=== PATIENT | female | born 1980 | race African-American/Black ===

== ENCOUNTER 2021-02-25 01:40 | Day surgery (SDC) | payer OTHER, SELFPAY ==
[2021-02-06 13:48] VITALS: BMI 23.2
[2021-02-25 08:19] VITALS: BP 129/87; PULSE 86; RESP 18; TEMP 36.6; O2SAT 100
[2021-02-25] MEDS: LACTATED RINGERS 1,000 ML 150 ML IV CONT (08:26)
--- NOTE | 2021-02-25 08:31 | WPDGICN ---
Assessment and Plan Assessment and plan (1) Epigastric abdominal pain: Code(s): R10.13 - Epigastric pain Status: Acute Assessment and Plan: Patient has ongoing epigastric pain. Had she does have a distant history of peptic ulcer disease 20 years ago. Currently having poor response to PPI therapy. She should continue to avoid nonsteroidal anti-inflammatory agents. PPI is advised be increased to a b.i.d. dose. EGD will be performed and further recommendations subsequently. GI Consult Note Consult date/time: 02/25/21 08:31 HPI: Diane Nichole is a 40 year old female Presents for EGD. Patient reports of 5 month history of epigastric pain. She continues to notice pain in the epigastric area of the abdomen. Somewhat worse after eating spicy foods. Previously has taken nonsteroidal anti-inflammatory agents she is decrease these over the last 1 month. Most recently has been on PPI therapy 40 mg p.o. b.i.d.. Of omeprazole. Her family history is noncontributory. Because of ongoing epigastric pain an EGD is performed today. Review of Systems Review of Systems: All systems reviewed & are unremarkable except as noted in HPI and below PMFSH Past Medical History Medical History (Updated 01/01/21 @ 14:16 by William Cannon MD) Gastric ulcer GERD (gastroesophageal reflux disease) Surgical History Surgical History H/O cystoscopy H/O: hysterectomy Family History Family History Mother Hypertension Diabetes mellitus Sibling Asthma Social History Social History Smoking status: Never smoker Second hand tobacco smoke exposure: No Alcohol intake: never Substance use: never Substance use type: does not use Living arrangements: with family Gender identity (if verbalized by the patient): Female Sexual Orientation (if Verbalized by the Patient): Straight or Heterosexual Spiritual care concerns: No Meds Home Medications and Allergies Home Medications Medication Instructions Recorded Confirmed Type omeprazole 40 mg capsule,delayed 40 mg PO DAILY 12/28/20 02/06/21 History release Allergies Allergy/AdvReac Type Severity Reaction Status Date / Time levofloxacin [From Levaquin] Allergy Mild Vomiting Verified 02/25/21 08:18 metronidazole [From Flagyl] Allergy Mild Vomiting Verified 02/25/21 08:18 morphine Allergy Unknown N&V, HEART Verified 02/25/21 08:18 RACES codeine AdvReac Unknown N&V Verified 02/25/21 08:18 Vital Signs Vital Signs - 24 hr 02/25/21 08:19 Temperature 97.8 F Pulse Rate 86 Respiratory Rate 18 Blood Pressure 129/87 Pulse Oximetry 100 Exam Narrative: Exam Narrative: Physical exam reveals patient to be alert. Vital signs stable. HEENT exam is unremarkable. Patient is anicteric. Lungs are clear to auscultation and percussion. Heart is without murmur or extra sounds. Abdominal exam bowel sounds are present soft nontender with no organomegaly. Digital rectal exam is deferred today.
--- NOTE | 2021-02-25 09:01 | WPDANESEPPF ---
Anes - Initial Pre Proc Eval Procedure: Operation Date: 02/25/21 09:00 Proposed Procedures p Esophagogastroduodenoscopy - William Cannon MD Date/Time: 02/25/21 09:01 Surgeon: William Cannon MD Pre Op Diagnosis: GERD, epigastric pain Patient Data Age: 40 Gender: F Height: 1.63 m Weight: 63.7 kg Last Vital Signs Temp 97.8 F 02/25/21 08:19 Pulse 86 02/25/21 08:19 Resp 18 02/25/21 08:19 BP 129/87 02/25/21 08:19 Pulse Ox 100 02/25/21 08:19 Allergies Allergy/AdvReac Type Severity Reaction Status Date / Time levofloxacin [From Levaquin] Allergy Mild Vomiting Verified 02/25/21 08:18 metronidazole [From Flagyl] Allergy Mild Vomiting Verified 02/25/21 08:18 morphine Allergy Unknown N&V, HEART Verified 02/25/21 08:18 RACES codeine AdvReac Unknown N&V Verified 02/25/21 08:18 Home Medications Medication Instructions Recorded Confirmed Type omeprazole 40 mg capsule,delayed 40 mg PO DAILY 12/28/20 02/06/21 History release Patient hx anesthesia problems: post op nausea/vomiting Family hx anesthesia problems: none PMFSH Past Medical History Medical History (Updated 01/01/21 @ 14:16 by William Cannon MD) Gastric ulcer GERD (gastroesophageal reflux disease) Surgical History Surgical History H/O cystoscopy H/O: hysterectomy Family History Family History Mother Hypertension Diabetes mellitus Sibling Asthma Social History Social History Smoking status: Never smoker Second hand tobacco smoke exposure: No Alcohol intake: never Substance use: never Substance use type: does not use Living arrangements: with family Gender identity (if verbalized by the patient): Female Sexual Orientation (if Verbalized by the Patient): Straight or Heterosexual Spiritual care concerns: No Anes - Eval Final PreProcedure Day of Procedure 02/25/21 09:01 Patient weight: normal Heart: regular rate and rhythm Lungs: clear to auscultation Airway: Mallampati scale class II Neurological: alert and oriented Last oral intake: >/= 8 hours ASA classification: II Emergent: no Anesthetic plan: proceed Anesthesia type and monitoring: general GIVS and standard monitoring Informed Consent: The patient's anesthetic plan and its attendant risks and benefits were discussed with the patient/family/POA. Questions were solicited and answers provided to the satisfaction of the patient/family/POA.
[2021-02-25] MEDS: BENZOCAINE (*SP) 60 ML SPRAY CAN (HURRICAINE) 1 SPRAY MUCOUS MEM (09:07)
[2021-02-25 09:17] VITALS: BP 124/92; PULSE 92; RESP 23; O2SAT 99
[2021-02-25 09:27] VITALS: BP 137/97; PULSE 84; RESP 15; O2SAT 100
[2021-02-25 09:37] VITALS: BP 143/98; PULSE 79; RESP 17; O2SAT 99
== END 2021-02-25 09:52 | disposition home or self-care (01) ==
PROVIDERS: PCP Nurse Practitioner Family; Visit Provider Internal Medicine Gastroenterology
PROC: 0DJ08ZZ Inspection of Upper Intestinal Tract, Via Natural or Artificial Opening Endoscopic (ICD-10-PCS; CPT 43235; principal; 2021-02-25 09:00)
DX: R10.13 Epigastric pain (principal); K21.9 Gastro-esophageal reflux disease without esophagitis; Z87.11 Personal history of peptic ulcer disease
CPT/HCPCS: 43239; 87081; J2704; J7120

== ENCOUNTER 2022-06-23 08:24 | Emergency (ER) | payer OTHER, SELFPAY ==
--- NOTE | ~2022-06-23 | XR_ITS ---
EXAMINATION: XR chest 2V 06/23/2022 09:02 INDICATION: Chest pain PROCEDURE: 2 view chest COMPARISON: No prior studies for comparison. FINDINGS: The lungs are clear. The cardiomediastinal silhouette is within normal limits. There are no pleural effusions. There is no pneumothorax suspected. IMPRESSION: 1: NO ACUTE CARDIOPULMONARY DISEASE. Reviewed, dictated and finalized at location B.
[2022-06-23 08:33] VITALS: BP 145/99; PULSE 92; RESP 18; TEMP 35.7; O2SAT 100
--- NOTE | 2022-06-23 08:34 | ED.URI ---
HPI - URI/Sore Throat General Chief Complaint: Upper Respiratory Infection Stated Complaint: Coughing, Chest Pain Time Seen by Provider: 06/23/22 08:40 Source: patient and RN notes reviewed Mode of arrival: ambulatory Limitations: no limitations History of Present Illness HPI Narrative: 42-year-old female presents with concern for more than 2 week history of cough. She reports right-sided lateral aching that started 2 days ago and worsened yesterday. She reports a hoarse voice. She denies a productive cough. She denies fever, general body aches, chills, sweats. She reports she has taken several [id number] medications without relief for cough. She has also tried Tessalon Perles without relief. She denies shortness of breath MD elicited complaint: cough Related Data Allergies Allergy/AdvReac Type Severity Reaction Status Date / Time morphine Allergy Unknown N&V, HEART Verified 06/23/22 08:33 RACES levofloxacin [From Levaquin] AdvReac Mild Vomiting Verified 06/23/22 08:33 metronidazole [From Flagyl] AdvReac Mild Vomiting Verified 06/23/22 08:33 codeine AdvReac Unknown N&V Verified 06/23/22 08:33 Review of Systems Review of Systems: CONSTITUTIONAL: Reports malaise. Denies chills, sweats, or fever. EYES: Denies visual changes, redness, or discharge. ENT: Denies rhinorrhea, congestion, sinus pain, otalgia and sore throat. Reports hoarse for CARDIOVASCULAR: Denies chest pain, palpitations, or edema. RESPIRATORY: Reports cough, right lateral chest aching. Denies dyspnea. MUSCULOSKELETAL: Denies myalgia. NEUROLOGIC: Denies headache. All systems reviewed & are unremarkable except as noted in HPI and below [facility] Past Medical History Medical History (Updated 06/23/22 @ 09:08 by Daisha Mata NP) Gastric ulcer GERD (gastroesophageal reflux disease) Surgical History Surgical History H/O cystoscopy H/O: hysterectomy Family History Family History Mother Hypertension Diabetes mellitus Sibling Asthma Social History Social History Smoking status: Never smoker Second hand tobacco smoke exposure: No Alcohol intake: never Substance use: never Substance use type: does not use Gender identity (if verbalized by the patient): Female Sexual Orientation (if Verbalized by the Patient): Straight or Heterosexual Spiritual care concerns: No Comments At time of signature, agree with nursing past medical, surgical, social and family history. There is no relevant family history pertinent to the presenting complaint Exam Narrative: GENERAL: Nontoxic-appearing and in no acute distress. HEAD: Normocephalic EYES: PERRLA, conjunctivae clear ENT: Nares clear. Mucous membranes moist. TM pearly antonio with dull light reflex bilaterally; no tragal tenderness. Oropharynx not erythematous without lesions. Tonsils not enlarged and without exudate, no drooling, no hoarseness, no trismus, uvula midline. NECK: Supple. No lymphadenopathy CHEST: Clear to auscultation, breath sounds slightly diminished on the right lower lobe. No wheezing, rhonchi, rales, or stridor. No respiratory distress, speaks in full sentences. HEART: Regular rate and rhythm. No murmur heard. SKIN: Warm, dry, no rash. NEURO: Alert and oriented x3. PSYCH: Normal mood and affect Course Course Emergency Course: Patient is aware of diagnosis, understands and agrees to treatment plan. Anticipatory guidance given. Patient agrees to follow-up as directed and is aware of reasons to seek care at the emergency department. Portions of this record may have been created with voice recognition software Level of Care: Express Care Visit Vital Signs Vital signs: Vital Signs Temperature 96.3 F L 06/23/22 08:33 Pulse Rate 92 06/23/22 08:33 Respiratory Rate 18 06/23/22 08:33
[2022-06-23 08:35] VITALS: BP 145/99; PULSE 92; RESP 18; TEMP 35.7; O2SAT 100
== END 2022-06-23 09:20 | disposition home or self-care (01) ==
PROVIDERS: Emergency Provider Nurse Practitioner; PCP Nurse Practitioner Family
DX: J06.9 Acute upper respiratory infection, unspecified (principal); K21.9 Gastro-esophageal reflux disease without esophagitis
CPT/HCPCS: 71046; 99213; G0463

== ENCOUNTER 2022-08-10 08:20 | Emergency (ER) | payer OTHER, SELFPAY ==
[2022-08-10 08:28] VITALS: BP 146/90; PULSE 90; RESP 18; TEMP 35.9; O2SAT 100
--- NOTE | 2022-08-10 08:41 | ED.FEMALEGU ---
HPI - Female Genitourinary General Chief complaint: Urogenital-Female Stated complaint: UTI Time Seen by Provider: 08/10/22 08:41 Source: patient Mode of arrival: ambulatory Limitations: no limitations History of Present Illness HPI Narrative: 42-year-old female presents with complaint of urinary frequency, urgency, dysuria, odor for 5-6 days. Now reports left-sided flank pain traveling into suprapubic area. Afebrile. Denies nausea vomiting diarrhea. 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 All systems reviewed and negative except as noted above. Related Data Allergies Allergy/AdvReac Type Severity Reaction Status Date / Time morphine Allergy Unknown N&V, HEART Verified 08/10/22 08:22 RACES levofloxacin [From Levaquin] AdvReac Mild Vomiting Verified 08/10/22 08:22 metronidazole [From Flagyl] AdvReac Mild Vomiting Verified 08/10/22 08:22 codeine AdvReac Unknown N&V Verified 08/10/22 08:22 Review of Systems Review of Systems: CONSTITUTIONAL: Denies fever, chills, or sweats. EYES: Denies visual changes, redness, or discharge. ENT: Denies rhinorrhea, congestion, sore throat, or otalgia. CARDIOVASCULAR: Denies chest pain, palpitations, or edema. RESPIRATORY: Denies cough or dyspnea. GASTROINTESTINAL: Denies abdominal pain, nausea, vomiting, or diarrhea. GENITOURINARY: Reports dysuria, urgency, frequency. Denies hematuria. SKIN: Denies rash or itching. MUSCULOSKELETAL: Denies back pain, joint pain, or myalgia. NEUROLOGIC: Denies headache, numbness, or weakness. PSYCHIATRIC: Denies anxiety or depression. All other systems reviewed are negative, except as documented in HPI. [facility] Past Medical History Medical History (Updated 08/10/22 @ 08:59 by Chloe Ashley NP) Gastric ulcer GERD (gastroesophageal reflux disease) Surgical History Surgical History H/O cystoscopy H/O: hysterectomy Family History Family History Mother Hypertension Diabetes mellitus Sibling Asthma Social History Social History Smoking status: Never smoker Second hand tobacco smoke exposure: No Alcohol intake: never Substance use: never Substance use type: does not use Gender identity (if verbalized by the patient): Female Sexual Orientation (if Verbalized by the Patient): Straight or Heterosexual Spiritual care concerns: No Comments At time of signature, agree with nursing past medical, surgical, social and family history. There is no relevant family history pertinent to the presenting complaint. Exam Narrative: GENERAL: This is a well-nourished, well-developed patient, in no apparent distress. HEAD: normocephalic, atraumatic. EYES: PERRL. Sclera clear/white. Vision is grossly intact. EARS: External ears normal NOSE: External nose normal THROAT: Mucous membranes moist, posterior pharynx clear. NECK: Neck supple, non-tender without lymphadenopathy, masses or thyromegaly. CARDIOVASCULAR: Regular rate and rhythm without murmurs, gallops, or rubs. RESPIRATORY: Clear to auscultation. Breath sounds equal bilaterally. No wheezes, rales, or rhonchi. SKIN: warm, Dry, intact with no suspicious lesions or rash, good texture and turgor. NEURO: awake, alert, and oriented to person, place and time. There were no obvious focal neurologic abnormalities. EXTREMITIES: No joint tenderness, effusion, or edema noted. BACK: No CVA tenderness. Course Course Level of Care: Express Care Visit Vital Signs Vital signs: Vital Signs Temperature 35.9 C L 08/10/22 08:28 Pulse Rate 90 08/10/22 08:28 Respiratory Rate 18 08/10/22 08:28 Blood Pressure 146/90 H 08/10/22 08:28 Pulse Oximetry 100 08/10/22 08:28 Oxygen Delivery Room Air 08/10/22 08:28 Temperature 35.9 C L 08/10/22 08:28 Pulse Rate 90 08/10/22 08:28 Respirat
[2022-08-10] MEDS: cefTRIAXone 1 GM, LIDOCAINE HCL 1% LOCAL INJ 2.1 ML IM (08:58)
== END 2022-08-10 09:15 | disposition home or self-care (01) ==
PROVIDERS: Emergency Provider Nurse Practitioner Family; PCP Nurse Practitioner Family
DX: N39.0 Urinary tract infection, site not specified (principal); K21.9 Gastro-esophageal reflux disease without esophagitis; Z94.89 Other transplanted organ and tissue status
CPT/HCPCS: 81003; 87077; 87086; 87186; 96372; 99213; G0463; J0696

== ENCOUNTER 2023-10-01 08:04 | Emergency (ER) | payer OTHER, SELFPAY ==
[2023-10-01 08:13] VITALS: BP 144/88; PULSE 88; RESP 16; O2SAT 99
--- NOTE | 2023-10-01 08:14 | ED.ABDPAIN ---
HPI - Abdominal Pain General Chief Complaint: Abdominal Pain Stated Complaint: pain in stomach Time Seen by Provider: 10/01/23 08:06 Patient is a 43-year-old female that presents with 2 weeks of epigastric abdominal pain. Patient states it has only been relieved by bland oatmeal and ibuprofen. Patient states eating anything else he makes pain worse. Patient states she has had an ulcer in the past. Patient has an endoscopy a few years ago that was normal. Patient denies any vomiting, nausea, diarrhea or blood in stool. Patient has not tried any Tums or other any [id number] antacids. Patient states she has been calling her primary office with no answer a return call. Source: patient Mode of arrival: ambulatory Limitations: no limitations Related Data Allergies Allergy/AdvReac Type Severity Reaction Status Date / Time morphine Allergy Intermediate N&V, HEART Verified 10/01/23 08:11 RACES codeine AdvReac Intermediate N&V Verified 10/01/23 08:11 levofloxacin [From Levaquin] AdvReac Intermediate Vomiting Verified 10/01/23 08:11 metronidazole [From Flagyl] AdvReac Intermediate Vomiting Verified 10/01/23 08:11 Review of Systems Review of Systems: All systems reviewed & are unremarkable except as noted in HPI and below Constitutional: Constitutional: Denies body ache(s), Denies chills, Denies fatigue, Denies fever(s), Denies headache(s), Denies malaise and Denies weakness Eyes: Eyes: Denies blurry vision, Denies irritation and Denies loss of vision ENT: Denies otalgia, Denies headache(s), Denies nasal discharge, Denies sinus pain and Denies sore throat Cardiovascular: Cardiovascular: Denies chest pain, Denies irregular heart rhythm and Denies dyspnea Respiratory: Respiratory: Denies dyspnea Gastrointestinal: Gastrointestinal: Reports abdominal pain, Denies melena, Denies hematochezia, Denies diarrhea, Denies nausea and Denies vomiting Musculoskeletal: Musculoskeletal: Denies back pain, Denies myalgias and Denies arthralgias Integumentary/Breasts: Skin/Breast: Denies pruritus and Denies rash Neurologic: Denies headache(s), Denies loss of vision and Denies weakness Psychiatric: Psychiatric: Reports no additional psychiatric complaints Endocrine: Endocrine: Denies fatigue PMFSH Past Medical History Medical History Gastric ulcer GERD (gastroesophageal reflux disease) Surgical History Surgical History H/O cystoscopy H/O: hysterectomy Family History Family History Mother Hypertension Diabetes mellitus Sibling Asthma Social History Social History Smoking status: Never smoker Second hand tobacco smoke exposure: No Alcohol intake: never Substance use: never Substance use type: does not use Living arrangements: with family Gender identity (if verbalized by the patient): Female Sexual Orientation (if Verbalized by the Patient): Straight or Heterosexual Spiritual care concerns: No Comments At time of signature, agree with nursing past medical, surgical, social and family history. There is no relevant family history pertinent to the presenting complaint. Exam Const: General: cooperative, healthy appearing, comfortable, no acute distress and well nourished Nutritional Appearance: well nourished Orientation/consciousness: patient oriented x3 Limitations: no limitations HENMT: Head: normal to inspection, normocephalic and atraumatic Ears: hearing grossly normal bilaterally and external ears normal Face/Nose/Sinus: Normal external nose present, normal facial exam and face symmetric Face and sinus: normal facial exam and face symmetric Mouth: Yes lip normal Eyes: General: appearance normal, both eyes and all related structures Alignment and Position: alignment normal and
[2023-10-01] MEDS: LIDOCAINE HCL 2% VISC SOLN 15 ML UDC 10 ML PO (08:46)
[2023-10-01] MEDS: MAG HYDROX/AL HYDROX/SIMETH 30 ML UDC PO (08:46)
== END 2023-10-01 09:18 | disposition home or self-care (01) ==
PROVIDERS: Emergency Provider Nurse Practitioner Family; PCP Nurse Practitioner Family
DX: K25.3 Acute gastric ulcer without hemorrhage or perforation (principal); K21.9 Gastro-esophageal reflux disease without esophagitis
CPT/HCPCS: 99213; A9270; G0463

== ENCOUNTER 2024-03-01 11:41 | Emergency (ER) | payer OTHER, SELFPAY ==
--- NOTE | 2024-03-01 11:42 | ECG_ITS ---
Test Date: 2024-03-01 11:53:14 Measurements Intervals [place] Rate: 85 P: 0 NM: 158 QRS: 37 QRSD: 74 T: 30 QT: 346 QTc: 412 Interpretive Statements SINUS RHYTHM CANNOT R/O SEPTAL INFARCT, AGE INDETERMINATE BASELINE ARTIFACT- II, III AVR, AVL, AVF ABNORMAL ECG No previous ECG available for comparison Electronically Signed On 03-01-2024 12:05:37 CDT by Juan Ramon Borges D.O.
[2024-03-01 11:57] VITALS: BP 170/101; PULSE 86; RESP 16; TEMP 36.3; O2SAT 100
[2024-03-01 13:21] VITALS: BP 151/88
--- NOTE | 2024-03-01 13:23 | PC.NURSE ---
Pt states she no longer wants to be seen by provider. Advised to come back to ED for further issues. Ambulated out of ED with steady gait in no obvious distress.
== END 2024-03-01 13:30 | disposition left against medical advice (07) ==
LOC: ANHED 13:28
PROVIDERS: Emergency Provider Emergency Medicine; PCP Obstetrics & Gynecology
DX: I10 Essential (primary) hypertension (principal)
CPT/HCPCS: 93005; 99199